=== PATIENT | female | born 1985 | race Caucasian/White ===

== ENCOUNTER → 2017-02-12 | Outpatient (CLI) | payer OTHER ==
[~2017-02-12] MED LIST: ACET500T76 PO; APPLE CIDER VINEGAR PO; ASPI1TAB30 PO; FENTANYL PF 250 MCG/5ML ONE; LACT1CAP37 PO; NAPR220C2 PO; OMEP20TA62 PO; PSEU120T9 PO; RANI300C PO; tylenol arthritis PO
== END ==
LOC: STAR 07:42
PROVIDERS: ATTEND Family Medicine
DX: Z02.9 Encounter for administrative examinations, unspecified (principal)

== ENCOUNTER → 2017-03-21 | Outpatient (CLI) | payer OTHER ==
[~2017-03-21] MED LIST changes: -FENTANYL PF 250 MCG/5ML ONE
== END | disposition home or self-care (01) ==
LOC: CFH 07:22
PROVIDERS: ATTEND Clinical Nurse Specialist Women's Health
DX: Z12.31 Encounter for screening mammogram for malignant neoplasm of breast (principal); Z80.3 Family history of malignant neoplasm of breast; Z84.81 Family history of carrier of genetic disease
CPT/HCPCS: 77063; G0202

== ENCOUNTER → 2017-08-08 | Outpatient (CLI) | payer OTHER ==
[~2017-08-08] MED LIST changes: +ACET500T71 PO; -ACET500T76 PO; +NAPR220C PO
== END | disposition home or self-care (01) ==
LOC: STAR 09:03
PROVIDERS: ATTEND Surgery
DX: Z02.9 Encounter for administrative examinations, unspecified (principal)

== ENCOUNTER 2017-08-12 08:40 | Day surgery (SDC) | payer OTHER ==
[2017-08-08 09:31] VITALS: BP 143/97
[~2017-08-12] VITALS: Ht 175.3 cm; Wt 136.0 kg
[2017-08-12] MEDS ORDERED: LACTATED RINGERS 1,000 ML IV SCH ×2 (09:08)
[2017-08-12 09:17] LABS: HCG UR OBC PASS
[2017-08-12] MEDS ORDERED: LIDOCAINE 1%, 2ML ONE (09:19)
[2017-08-12] MEDS ORDERED: BUPIVACAINE/PF 0.5% ONE (09:23)
[2017-08-12] MEDS ORDERED: EPINEPHRINE 1 MG/ML, 1ML ONE (09:24)
[2017-08-12] MEDS ORDERED: LIDOCAINE 1%, 2ML SQ PRN (09:30)
[2017-08-12] MEDS ORDERED: MIDAZOLAM 1 MG/ML, 2ML ONE (10:29)
[2017-08-12] MEDS ORDERED: FENTANYL PF 100 MCG/2ML ONE ×3 (10:29→11:37)
[2017-08-12] MEDS ORDERED: METOCLOPRAMIDE 5 MG/ML, 2ML ONE (10:37)
[2017-08-12] MEDS ORDERED: SUCCINYLCHOLINE 20 MG/ML, 10ML ONE (10:37)
[2017-08-12] MEDS ORDERED: ROCURONIUM 10 MG/ML ONE (10:37)
[2017-08-12] MEDS ORDERED: DEXAMETHASONE 4 MG/ML, 1ML ONE (10:37)
[2017-08-12] MEDS ORDERED: KETOROLAC 30 MG/1 ML ONE (10:37)
[2017-08-12] MEDS ORDERED: PROPOFOL 10 MG/ML, 20ML ONE (10:37)
[2017-08-12] MEDS ORDERED: ONDANSETRON 2MG/ML, 2ML ONE (10:37)
[2017-08-12] MEDS ORDERED: ACETAMINOPHEN 650 MG/20.3 ML UDC ONE (11:36)
[2017-08-12] MEDS ORDERED: OXYcodone 5 MG/5 ML ORAL.SOL UDC ONE (11:37)
[2017-08-12] MEDS ORDERED: HYDROmorphone 1 MG/ML, 1ML ONE (11:37)
[2017-08-12] MEDS: FENTANYL PF 100 MCG/2ML IV PRN ×2 (11:40→11:48)
[2017-08-12] MEDS: HYDROmorphone 1 MG/ML, 1ML IV PRN ×2 (11:56→12:16)
[2017-08-12] MEDS ORDERED: ONDANSETRON 2MG/ML, 2ML IVPush PRN ×2 (12:00→13:30)
[2017-08-12] MEDS ORDERED: LABETALOL 5MG/ML, 20ML IV PRN (12:00)
[2017-08-12] MEDS ORDERED: OXYcodone 5 MG/5 ML ORAL.SOL UDC PO PRN (12:00)
[2017-08-12] MEDS ORDERED: ACETAMINOPHEN 325 MG TABLET PO PRN (12:00)
[2017-08-12] MEDS ORDERED: HYDROmorphone 2 MG/ML, 1ML ONE (13:19)
[2017-08-12] MEDS ORDERED: OXYcodone/APAP 5/325MG TABLET PO PRN (13:30)
[2017-08-12] MEDS ORDERED: HYDROmorphone 2 MG/ML, 1ML IVPush PRN (13:30)
== END 2017-08-12 14:45 ==
LOC: OUT 08:40
PROVIDERS: ATTEND Surgery
DX: K43.0 Incisional hernia with obstruction, without gangrene (principal); I10 Essential (primary) hypertension; Z98.890 Other specified postprocedural states; K21.9 Gastro-esophageal reflux disease without esophagitis
CPT/HCPCS: 49561; 81025; 88302; C1729; J0171; J0330; J1100; J1170; J1885; J2250; J2405; J2704; J2765; J3010; J3490; J7120

== ENCOUNTER 2021-07-24 13:06 | Outpatient (CLI) | payer OTHER ==
[~2021-07-24 13:06] MED LIST changes: +ACET500T64 PO; -ACET500T71 PO; -ASPI1TAB30 PO; +ASPI1TAB31 PO; +IBUP-1222 PO; -LACT1CAP37 PO; +LACT1CAP47 PO; -NAPR220C PO; +NAPR220C62 PO
== END 2021-07-24 23:59 | disposition home or self-care (01) ==
LOC: CFH 13:06
PROVIDERS: ATTEND Obstetrics & Gynecology
DX: Z02.9 Encounter for administrative examinations, unspecified (principal)